=== PATIENT | female | born 1935 | race American Indian/Alaskan Native ===

== ENCOUNTER 2021-04-27 08:00 | Emergency (ER) | payer MEDICARE ==
[2021-04-27 08:11] VITALS: BP 148/76; PULSE 86; RESP 18; TEMP 97
[2021-04-27] MEDS ORDERED: LIDOCAINE 1% INJ 10MG/ML (20 ML MDV) SQ ONE (08:36)
--- NOTE | 2021-04-27 08:38 | ED ---
General Adult HPI - General Chief complaint: Fall Stated complaint: Fall Time Seen by Provider: 04/27/21 08:05 Source: patient Mode of arrival: ambulatory Limitations: no limitations - History of Present Illness Initial comments: Dictation was produced using [employer] dictation software. please excuse any grammatical, word or spelling errors. Chief Complaint: 85-year-old female presents to emergency department after fall History of Present Illness: Patient is an 85-year-old female who was walking her dog this morning when she tripped over some ice. She fell forward striking her face and landing on her right knee. Patient states she's here to be evaluated for facial injury. Patient takes xarelto for DVT. Patient suffered a la ceration to her lower lip. The ROS documented in this emergency department record has been reviewed and confirmed by me. Those systems with pertinent positive or negative responses have been documented in the HPI. All other systems are other negative and/or noncontributory. PHYSICAL EXAM: General Impression: Alert and oriented x3, not in acute distress HEENT: Normocephalic atraumatic, extra-ocular movements intact, pupils equal and reactive to light bilaterally, mucous membranes moist, 1 cm laceration to the lower lip vertically not involving vermilion border, abrasion to forehead Cardiovascular: Heart regular rate and rhythm Chest: Able to complete full sentences, no retractions, no tachypnea Abdomen: abdomen soft, non-tender, non-distended, no organomegaly Musculoskeletal: Pulses present and equal in all extremities, no peripheral edema Motor: no focal deficits noted Neurological: CN II-XII grossly intact, no focal motor or sensory deficits noted Skin: Intact with no visualized rashes Psych: Normal affect and mood ED course: 5-year-old female presents to emergency department for fall. She takes and a coagulation medications per she is a small laceration to her lower lip. vital signs upon arrival are within acceptable limits. Computed tomography scan of the head and C-spine shows no acute processes. CT facial bones shows no acute processes. Laceration of the upper lip was repaired at bedside. Patient tolerated procedure well. Patient be discharged. - Related Data Allergies Allergy/AdvReac Type Severity Reaction Status Date / Time Penicillins Allergy Rash/Hives Verified 04/27/21 08:11 Review of Systems ROS Statement: Those systems with pertinent positive or pertinent negative responses have been documented in the HPI. ROS Other: All systems not noted in ROS Statement are negative. Past Medical History Additional Past Medical History / Comment(s): dvt, increased in red blood cells History of Any Multi-Drug Resistant Organisms: None Reported Past Surgical History: Cholecystectomy Past Psychological History: No Psychological Hx Reported Smoking Status: Never smoker Past Alcohol Use History: Occasional Past Drug Use History: None Reported General Exam Limitations: no limitations Course Vital Signs 04/27/21 08:08 Temperature 97.0 F L Pulse Rate 86 Respiratory 18 Rate Blood Pressure 148/76 O2 Sat by Pulse 97 Oximetry Procedures - Laceration Laceration #1 Consent Obtained: verbal consent Indication: laceration Site: lip (upper lip 2 cm) Description: linear Depth: simple, single layer Anesthetic Used: lidocaine 1% Anesthesia Technique: local infiltration Type of Sutures: nylon Size of Sutures: 6-0 Technique: simple, interrupted Disposition Clinical Impression: Fall, Laceration Disposition: HOME SELF-CARE Condition: Good Instructions (If sedation given, give patient instructions): Fall Prevention for Older Adults (ED), Laceration (ED) Additional Instructions: Suture removal in 3-5 days Is patient prescribed a controlled substance at d/c from ED?: No Referrals: Bao Zimmerman MD [Primary Care Provider] - 1-2 days
--- NOTE | 2021-04-27 09:02 | CT ---
EXAMINATION TYPE: CT brain betty nieves DATE OF EXAM: 04/27/2021 COMPARISON: None HISTORY: multiple facial lacerations post fall CT DLP: 990 mGycm Automated exposure control for dose reduction was used. TECHNIQUE: CT scan of the head and cervical spine are performed without contrast. FINDINGS: There is no acute intracranial hemorrhage, mass effect, or midline shift identified. The ventricles and sulci are within normal limits in size for the patient's age.. The globes are intact and the visualized sinuses are clear. Cervical spine is visualized in its entirety from C1 through upper thoracic levels and demonstrates s atisfactory alignment without evidence of acute fracture or dislocation. Prevertebral soft tissue ap pears within normal limits. The C1-C2 articulation is unremarkable. IMPRESSION: 1. There is no acute fracture or dislocation evident in the cervical spine. 2. No acute intracranial hemorrhage, mass effect, or midline shift is seen.
--- NOTE | 2021-04-27 09:04 | CT ---
EXAMINATION TYPE: CT facial bones wo con DATE OF EXAM: 04/27/2021 COMPARISON: None HISTORY: multiple facial lacerations post fall CT DLP: 787.1 mGycm Automated exposure control for dose reduction was used. TECHNIQUE: CT scan of the sinuses is performed without contrast, axial images are obtained, coronal r eformatted images are also reviewed. FINDINGS: The paranasal sinuses are well aerated. There is minimal mucosal thickening in the maxillar y sinuses indicating mild chronic sinusitis.. The ostiomeatal complex is patent bilaterally on the c oronal images. The osseous structures of the facial bones are intact without evidence of fracture or focal intraosseous abnormality. Visualized portion of mastoid air cells show no abnormal opacification. The globes are intact bilate rally. IMPRESSION: 1. No facial bone fracture. 2. Mild chronic inflammatory change of the maxillary sinuses.
[2021-04-27] MEDS ORDERED: DIPH,PERTUS(ACELL)TETVAC-LF 0.5 ML VIAL IM ONE (09:17)
== END 2021-04-27 09:32 | disposition home or self-care (01) ==
LOC: EC 08:00
DX: S01.511A Laceration without foreign body of lip, initial encounter (principal); W01.0XXA Fall on same level from slipping, tripping and stumbling without subsequent striking against object, initial encounter
CPT/HCPCS: 93005; 72125; 70486; 70450; 90715; 12011; 90471; 99284; J2001

== ENCOUNTER 2023-11-22 08:52 | Day surgery (SDC) | payer MEDICARE ==
[2023-11-22 09:28] LABS: Mean Platelet Volume 8.6; Platelet Count 398 k/uL (150-450)
[2023-11-22 09:32] LABS: INR 1.2 (<1.2); Prothrombin Time 12.5 sec (10.0-12.5)
[2023-11-22 09:35] VITALS: TEMP 98.1
[2023-11-22 10:36] VITALS: BP 129/72; PULSE 79; RESP 17
--- NOTE | 2023-11-22 22:20 | US ---
EXAMINATION TYPE: US FNA thyroid first lesion DATE OF EXAM: 11/22/2023 10:27 AM REASON FOR EXAM: 87-year-old female E04.1 NONTOXIC SINGLE THYROID NODULE RADIOLOGIST: Dr. Farmer PROCEDURE: An initial scan showed a large heterogeneous predominant solid nodule with calcifications in the right lobe measuring up to 3.1 cm. This is targeted for FNA. The procedure, along with the risks and complications were discussed with the patient. Patient agreed to proceed with the procedure. A consent was signed and placed in patient's chart. Maximum sterile barrier technique was utilized. Timeout was performed by myself. The right side of th e neck was sterilely prepped and draped in the usual fashion. 3 milliliters of 1% Lidocaine were util ized to anesthetize the superficial and deep soft tissues at each nodule in turn. Following that, under ultrasound guidance, 5 passes were made into the nodule with 5 cc syringe sucti on. After each pass, the sample was placed on a slide and then sent for pathology. Upon conclusion, hemostasis was achieved, and patient was discharged home in satisfactory condition. IMPRESSION: Successful FNA of the heterogeneous 3.1 cm nodule in the right lobe. Pathology pending.
== END 2023-11-22 10:39 | disposition home or self-care (01) ==
LOC: RADPROMAIN 08:52
PROVIDERS: ATTEND Internal Medicine Hematology & Oncology
DX: E04.1 Nontoxic single thyroid nodule (principal)
CPT/HCPCS: 10005; 36415; 85049; 85610; 88173; 88305